=== PATIENT | female | born 1960 | race Caucasian/White ===

== ENCOUNTER 2016-10-08 08:30 | Emergency (ER) | payer SELFPAY ==
--- NOTE | 2016-10-08 09:11 | ERNOTE ---
Lower Extremity HPI - Narrative Date of Service: 10/08/16 - General Lower Extremities Pain: knee: right Time Seen by Provider: 10/08/16 09:01 Source: patient Exam Limitations: no limitations - Immun/Allergies/Home Medications Immunizations: IMMUNIZATION HX Immunizations Up to Date Yes History of Influenza Vaccine Yes Hx Pneumococcal Vaccination No Allergies/Adverse Reactions: Allergies Allergy/AdvReac Type Severity Reaction Status Date / Time No Known Allergies Allergy Verified 10/08/16 08:38 Home Medications: HOME MEDICATIONS Aspirin [Aspirin Chewable] 81 mg PO DAILY 05/27/12 [Last Taken Unknown] Atenolol [Tenormin] 25 mg PO DAILY 05/27/12 [Last Taken Unknown] Famotidine [Pepcid] 40 mg PO DAILY 05/27/12 [Last Taken Unknown] Levothyroxine Sodium [Synthroid] 50 mcg PO DAILY 05/27/12 [Last Taken Unknown] Lisinopril [Zestril] 10 mg PO DAILY 05/27/12 [Last Taken Unknown] Pantoprazole Sodium [Protonix] 40 mg PO DAILY 05/27/12 [Last Taken Unknown] Atorvastatin Calcium 80 mg PO DAILY 10/08/16 [Last Taken Unknown] Duloxetine HCl [Cymbalta] 30 mg PO DAILY 10/08/16 [Last Taken Unknown] Gabapentin 200 mg PO DAILY 10/08/16 [Last Taken Unknown] Meloxicam [Mobic] 15 mg PO DAILY 10/08/16 [Last Taken Unknown] - History of Present Illness Narrative: patient presents to the ED for right leg pain. SHe relates this has been daily for 2 weeks. She works at a senior living. She denies any injuer. The pain is behind her right knee and can move down her leg to her ankle area. Hurts to bend the knee and to walk. No fever. no CP or SOB. no acute focal N/T/W. No rash. She has not seen anyone for this problem. No hip pain. Occurred: other - 2 weeks Location of Incident: other - none Method of Injury: Reports: unknown Modifying Factors - (Improves): Reports: rest Modifying Factors - (Worsens): Reports: other - waling, bending knee Associated Symptoms: Denies: unable to bear weight, dizzy/light headedness, chest pain Subsequent Symptoms: Denies: sensory loss, numbness, motor loss Prior Treament: Denies: recently seen Review of Systems - Review of Systems Constitutional: Absent: fever Respiratory: Absent: shortness of breath Cardiology: Absent: chest pain Gastrointestinal/Abdominal: Absent: abdominal pain Skin: Absent: rash Neurological: Absent: weakness, numbness - Patient's Past Medical History Patient History - Medical: Arthritis, Depression, GERD, Hypothyroidism Patient History - Cardiac/Respiratory: Hypertension, Hyperlipidemia Patient History - Cancer: Other Patient History - Surgical Procedures: , Hysterectomy, T & A, Other Patient History - Other: None LMP (females 10-50): Menopausal - Social History Living Situations: home Abuse History: No History of abuse Psych History: Hx of Depression, Current tx/ever been on anti-depressants or anti-anxiety meds Smoking Status: Never smoker Alcohol Use: none Drug Use: none - Immunizations Immunizations Up to Date: Yes Hx Pneumococcal Vaccination: No History of Influenza Vaccine: Yes Physical Exam - Physical Exam General Appearance: Present: alert, no apparent distress Head Exam: Present: normal inspection Eye Exam: Normal inspection: bilateral, PERRL: bilateral Ears, Nose, Throat: Present: normal ENT inspection Neck: Present: normal inspection Respiratory: Present: no respiratory distress, normal breath sounds, no accessory muscle use, lungs clear Cardiovascular/Chest: Present: regular rate, rhythm, no murmur, normal peripheral pulses, other - strong DP pulses Gastrointestinal/Abdominal: Present: normal bowel sounds, nontender Back Exam: Present: normal range of motion Extremity Exam: Present: normal inspection, other - No right hip tendenress. Mild tenderness posterior right knee. There is pain with extension of the knee that seems to reproduce her Sx. No swelling, redness or warmth. Strong DP pulse. No ankle tendenress. No compartment syndrome. No joint instability. 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 Skin Exam: Present: normal color, warm/dry. Absent: skin rash ED Progress - Results and Orders Patient's Lab Results:: I have reviewed the patient's lab results. - Vital Signs Patient's Vital Signs:: I have reviewed the patient's vital signs. Vital Signs: Vital Signs 10/08/16 08:33 Temperature 36.2 C L Pulse Rate 61 Respiratory 16 Rate Blood Pressure 129/73 O2 Sat by Pulse 99 Oximetry - CT/Ultrasound CT/Ultrasound Narrative: US report reviewed. No DVT. B. Cyst noted. - Progress/Reassessment Chief Complaint: Lower Extremity Pain/ Injury Progress Note-Subjective: 10/08/16 11:16 Nothing to suggest infectious process, septic arthritis, compartment syndrome, neuro deficit, vascular deficit or other life/limb threat. Knee immobilizer for comfort and close f/u. I discussed warning signs and reasons to return as well as the need for close f/u. Departure Clinical Impression: Leg pain - Departure Disposition: Home self-care Condition: Stable Instructions: Musculoskeletal Pain Additional Instructions: Rest. knee immobilizer for comfort. You need to be re-checked by your doctor on Monday. Elevate. Return for fever, increased pain, numbness, tingling, weakness or if your condition worsens or changes in any way. Referrals: Kathy Wallace DO [Primary Care Provider] -
[2016-10-08 11:21] VITALS: BP 130/70
== END 2016-10-08 11:27 | disposition home or self-care (01) ==
LOC: ER 08:30
PROC: 2W3MX1Z Immobilization of Left Lower Extremity using Splint (ICD-10-PCS; principal; 2016-10-08)
DX: M79.605 Pain in left leg (principal); M19.90 Unspecified osteoarthritis, unspecified site; F32.9 Major depressive disorder, single episode, unspecified; K21.9 Gastro-esophageal reflux disease without esophagitis; E03.9 Hypothyroidism, unspecified; I10 Essential (primary) hypertension; E78.5 Hyperlipidemia, unspecified